=== PATIENT | female | born 1985 | race Caucasian/White ===

== ENCOUNTER 2023-01-16 16:51 | Outpatient (CLI) | payer BC, SELFPAY ==
--- NOTE | 2023-01-16 17:00 | CRLHL7_ITS ---
For Patients: As a result of the Century Cures Act, medical imaging exams and procedure reports are released immediately into your electronic medical record. You may view this report before your referring provider. If you have questions, please contact your health care provider. INDICATION: IRREGULAR CYCLES, INFERTILITY COMPARISON: none TECHNIQUE: 2D anton scale and color Doppler images were acquired of the pelvis using a transabdominal and transvaginal approach. FINDINGS: Sonographic images demonstrate a normal size and smooth outer contour of the uterus. Uterus measures 11.4 cm in length by 4.3 cm in AP diameter by 5.8 cm in transverse dimension. The myometrium has a normal uniform echotexture. The endometrial lining measures 10 mm in composite thickness. The right ovary measures 4.4 x 2.7 x 2.6 cm in size and the left ovary measures 4.3 x 2.5 x 2.9 cm. Right ovarian volume 16.0 cc. Left ovarian volume 16.5 cc. The ovaries demonstrate normal arterial and venous blood flow on color Doppler analysis. There are no suspicious fluid collections within the cul-de-sac. IMPRESSION: Bilateral ovarian volumes are mildly increased, consider PCOS. No adnexal mass or excess pelvic free fluid. No uterine fibroid. Endometrial thickness 1 cm. Dictated by Martir Meza MD @ 01/17/2023 9:27:34 AM (Electronically Signed)
== END 2023-01-16 16:52 | disposition home or self-care (01) ==
PROVIDERS: Visit Provider Physician Assistant
DX: N92.6 Irregular menstruation, unspecified (principal)
CPT/HCPCS: 76830; 76856

== ENCOUNTER 2023-01-31 11:45 | Outpatient (CLI) | payer BC, SELFPAY | END 2023-01-31 11:46 | disposition home or self-care (01) | LOC: NFLDREF 02-02 09:02 | PROVIDERS: Visit Provider Physician Assistant | DX: N97.9 Female infertility, unspecified (principal) | CPT/HCPCS: 80061; 82670; 83001; 83498; 83520; 83525; 84144; 84146; 84403 ==

== ENCOUNTER 2023-02-18 11:40 | Outpatient (CLI) | payer BC, SELFPAY | END 2023-02-18 11:41 | disposition home or self-care (01) | LOC: NFLDREF 02-23 07:08 | PROVIDERS: Visit Provider Physician Assistant | DX: N97.9 Female infertility, unspecified (principal) | CPT/HCPCS: 84144 ==

== ENCOUNTER 2024-07-14 14:30 | Outpatient (CLI) | payer BC, SELFPAY | END 2024-07-14 14:31 | disposition home or self-care (01) | PROVIDERS: PCP Internal Medicine; Visit Provider Internal Medicine | DX: I10 Essential (primary) hypertension (principal); N92.6 Irregular menstruation, unspecified; E66.01 Morbid (severe) obesity due to excess calories; N97.9 Female infertility, unspecified; Z68.41 Body mass index [BMI] 40.0-44.9, adult | CPT/HCPCS: 80053; 84443; 87086 ==